=== PATIENT | female | born 1980 ===

== ENCOUNTER → 2016-07-29 | Outpatient (CLI) | payer BC ==
[2016-07-29 10:30] LABS: Basophils # (auto) 0.1 uL; Basophils % (auto) 1.2 % (0.0-2.0); Eosinophils # (auto) 0.1 uL; Eosinophils % (auto) 1.6 % (0.0-7.0); Hematocrit 42.7 % (36.0-46.0); Hemoglobin 14.2 g/dL (12.2-16.2); Lymphocytes # (auto) 2.1 uL; Lymphocytes % (auto) 29.3 % (10.0-50.0); Mean Corpuscular Hemoglobin 31.1 pg (28.0-32.0); Mean Corpuscular Hgb Conc. 33.2 g/dL (32.0-36.0); Mean Corpuscular Volume 93.5 fL (80.0-100.0); Mean Platelet Volume 8.2 fL (7.4-10.4); Monocytes # (auto) 0.4 uL; Monocytes % (auto) 5.3 % (0.0-12.0); Neutrophils # (auto) 4.5 uL; Neutrophils % (auto) 62.6 % (37.0-80.0); Platelet Count (auto) 471 10^3/uL (140-450); Red Cell Distribution Width 12.9 % (11.6-16.0); White Blood Cell 7.2 10^3/uL (4.4-10.8)
[2016-07-29 11:20] LABS: BUN/Creatinine Ratio 13.2; Bilirubin, Total 0.8 mg/dL (0.2-1.0); Calcium 9.4 mg/dL (8.5-10.1); Potassium 4.4 mmol/L (3.5-5.1); Total Protein 8.6 g/dL (6.4-8.2)
== END | disposition home or self-care (01) ==
LOC: LAB 09:23
PROVIDERS: ATTEND Internal Medicine
DX: Z00.00 Encounter for general adult medical examination without abnormal findings (principal)
CPT/HCPCS: 36415; 80053; 80061; 84443; 85025

== ENCOUNTER → 2016-12-02 | Outpatient (CLI) | payer BC | END | disposition home or self-care (01) | LOC: LAB 09:39 | PROVIDERS: ATTEND Internal Medicine | DX: D68.69 Other thrombophilia (principal) | CPT/HCPCS: 36415 ==

== ENCOUNTER → 2018-08-26 | Outpatient (CLI) | payer BC | END | disposition home or self-care (01) | LOC: LAB 09:40 | PROVIDERS: ATTEND Internal Medicine | DX: Z34.91 Encounter for supervision of normal pregnancy, unspecified, first trimester (principal); Z3A.01 Less than 8 weeks gestation of pregnancy | CPT/HCPCS: 36415; 84702 ==

== ENCOUNTER → 2021-09-27 | Outpatient (CLI) | payer BC ==
[2021-09-27 07:23] LABS: Urine WBC None Seen /hpf (0 - 5)
[2021-09-27 07:35] LABS: Basophils # (auto) 0.1 10 ^3/uL (0-0.2); Basophils % (auto) 1.4 % (0.0-2.0); Eosinophils # (auto) 0.2 10 ^3/uL (0-0.8); Eosinophils % (auto) 2.1 % (0.0-7.0); Hemoglobin 13.5 g/dL (12.2-16.2); Lymphocytes # (auto) 1.8 10 ^3/uL (0.4-5.4); Lymphocytes % (auto) 23.5 % (10.0-50.0); Mean Corpuscular Hemoglobin 31.7 pg (28.0-32.0); Mean Corpuscular Hgb Conc. 34.6 g/dL (32.0-36.0); Mean Corpuscular Volume 91.8 fL (80.0-100.0); Monocytes # (auto) 0.4 10 ^3/uL (0-1.3); Monocytes % (auto) 5.1 % (0.0-12.0); Neutrophils # (auto) 5.1 10 ^3/uL (1.6-8.6); Neutrophils % (auto) 67.9 % (37.0-80.0); Nucleated Red Blood Cells % 0.1 %; Red Blood Cells 4.25 10^6/uL (4.0-5.20); Red Cell Distribution Width 13.5 % (11.8-14.3); White Blood Cell 7.5 10^3/uL (4.4-10.8)
[2021-09-27 08:06] LABS: Potassium 4.3 mmol/L (3.5-5.1)
[2021-09-27 08:15] LABS: Albumin 3.6 g/dL (3.4-5.0); BUN/Creatinine Ratio 15.3; Bilirubin, Total 0.4 mg/dL (0.2-1.0); Calcium 9.2 mg/dL (8.5-10.1); Total Protein 7.7 g/dL (6.4-8.2)
[2021-09-27 08:42] LABS: Urine Bacteria NONE SEEN /hpf (None Seen); Urine Blood Negative /uL (Negative); Urine Specific Gravity 1.003 (1.001-1.035)
== END | disposition home or self-care (01) ==
LOC: LAB 07:03
PROVIDERS: ATTEND Internal Medicine
DX: Z00.00 Encounter for general adult medical examination without abnormal findings (principal); Z87.442 Personal history of urinary calculi
CPT/HCPCS: 36415; 80053; 80061; 81001; 82150; 84439; 84443; 85025

== ENCOUNTER → 2021-10-08 | Outpatient (CLI) | payer BC | END | disposition home or self-care (01) | LOC: LAB 15:07 | PROVIDERS: ATTEND Urology | DX: N20.0 Calculus of kidney (principal) | CPT/HCPCS: 87086 ==

== ENCOUNTER → 2023-07-21 | Outpatient (CLI) | payer BC ==
[~2023-07-21] MED LIST: LEVO500T31 PO; NORETAB32 PO; TAMS-35 PO
[2023-07-21 07:28] LABS: Basophils # (auto) 0.1 10 ^3/uL (0-0.2); Basophils % (auto) 1.1 % (0.0-2.0); Eosinophils # (auto) 0.1 10 ^3/uL (0-0.8); Eosinophils % (auto) 1.5 % (0.0-7.0); Hematocrit 43.3 % (36.0-46.0); Hemoglobin 14.3 g/dL (12.2-16.2); Lymphocytes # (auto) 1.6 10 ^3/uL (0.4-5.4); Lymphocytes % (auto) 20.7 % (10.0-50.0); Mean Corpuscular Volume 93.9 fL (80.0-100.0); Monocytes # (auto) 0.4 10 ^3/uL (0-1.3); Monocytes % (auto) 5.4 % (0.0-12.0); Neutrophils # (auto) 5.5 10 ^3/uL (1.6-8.6); Neutrophils % (auto) 71.3 % (37.0-80.0); Red Blood Cells 4.61 10^6/uL (4.0-5.20); Red Cell Distribution Width 13.3 % (11.8-14.3); White Blood Cell 7.8 10^3/uL (4.4-10.8)
[2023-07-21 08:06] LABS: Alanine Aminotransferase 13 U/L (7-40); Albumin 4.7 g/dL (3.2-4.8); Alkaline Phosphatase 120 U/L (46-116); Anion Gap 8 (5-15); Aspartate Aminotransferase 16 U/L (13-40); Blood Urea Nitrogen 15 mg/dL (9-23); Calcium 9.9 mg/dL (8.5-10.1); Carbon Dioxide 26 mmol/L (20-30); Chloride 105 mmol/L (98-107); Cholesterol 104 mg/dL (< 200); Glucose 94 mg/dL (74-106); HDL Cholesterol 51 mg/dL (40-59); LDL Cholesterol 39 mg/dL (< 100); Potassium 4.7 mmol/L (3.5-5.1); Sodium 139 mmol/L (136-145); Triglycerides 57 mg/dL (< 150)
[2023-07-21 08:07] LABS: Bilirubin, Total 0.8 mg/dL (0.2-1.0); Total Protein 7.1 g/dL (5.7-8.2)
[2023-07-21 10:28] LABS: T3 Total 1.14 ng/mL (0.60-1.81)
[2023-07-21 10:33] LABS: Free T4 (Free Thyroxine) 1.14 ng/dL (0.89-1.76)
== END | disposition home or self-care (01) ==
LOC: LAB 07:05
PROVIDERS: ATTEND Nurse Practitioner Gerontology
DX: Z00.01 Encounter for general adult medical examination with abnormal findings (principal); Z13.1 Encounter for screening for diabetes mellitus
CPT/HCPCS: 36415; 80053; 80061; 83036; 84439; 84443; 84480; 85025

== ENCOUNTER → 2024-09-14 | Outpatient (CLI) | payer BC ==
[2024-09-14 07:28] LABS: Urine Bacteria FEW /hpf (None Seen); Urine Blood TRACE /uL (Negative); Urine Clarity Clear (Clear); Urine Color Light-Yellow (Yellow); Urine Mucus FEW (None Seen); Urine Protein, UAD Negative (Negative); Urine Specific Gravity 1.022 (1.001-1.035); Urine Squamous Epithelial Cell FEW /hpf (<5); Urine Urobilinogen Normal (Negative); Urine WBC 2 /HPF (0-5)
[2024-09-14 07:41] LABS: Alanine Aminotransferase 14 U/L (7-40); Albumin 4.8 g/dL (3.2-4.8); Alkaline Phosphatase 83 U/L (46-116); Anion Gap 10 (5-15); Aspartate Aminotransferase 16 U/L (13-40); BUN/Creatinine Ratio 15.7 (10.0-20.0); Blood Urea Nitrogen 16 mg/dL (9-23); Calcium 10.2 mg/dL (8.7-10.4); Carbon Dioxide 25 mmol/L (20-31); Chloride 106 mmol/L (98-107); Cholesterol 125 mg/dL (< 200); Glucose 101 mg/dL (74-106); HDL Cholesterol 59 mg/dL (40-59); LDL Cholesterol 39 mg/dL (< 100); Potassium 4.3 mmol/L (3.5-5.1); Sodium 141 mmol/L (136-145); Total Protein 7.5 g/dL (5.7-8.2); Triglycerides 92 mg/dL (< 150)
[2024-09-14 07:42] LABS: Bilirubin, Total 0.8 mg/dL (0.2-1.0)
[2024-09-14 08:18] LABS: Basophils # (auto) 0.1 10 ^3/uL (0-0.2); Basophils % (auto) 0.9 % (0.0-2.0); Eosinophils # (auto) 0.2 10 ^3/uL (0-0.8); Eosinophils % (auto) 3.6 % (0.0-7.0); Hematocrit 41.4 % (36.0-46.0); Lymphocytes # (auto) 1.5 10 ^3/uL (0.4-5.4); Lymphocytes % (auto) 24.8 % (10.0-50.0); Mean Corpuscular Hemoglobin 32.1 pg (28.0-32.0); Mean Corpuscular Hgb Conc. 33.9 g/dL (32.0-36.0); Mean Corpuscular Volume 94.7 fL (80.0-100.0); Monocytes # (auto) 0.4 10 ^3/uL (0-1.3); Monocytes % (auto) 6.3 % (0.0-12.0); Neutrophils # (auto) 3.9 10 ^3/uL (1.6-8.6); Neutrophils % (auto) 64.4 % (37.0-80.0); Nucleated Red Blood Cells % 0.2 %; Platelet Count (auto) 319 10^3/uL (140-450); Red Blood Cells 4.37 10^6/uL (4.0-5.20); Red Cell Distribution Width 13.1 % (11.8-14.3); White Blood Cell 6.1 10^3/uL (4.4-10.8)
== END | disposition home or self-care (01) ==
LOC: LAB 06:41
PROVIDERS: ATTEND Internal Medicine
DX: N13.2 Hydronephrosis with renal and ureteral calculous obstruction (principal); Z13.1 Encounter for screening for diabetes mellitus; Z00.01 Encounter for general adult medical examination with abnormal findings
CPT/HCPCS: 36415; 80053; 80061; 81001; 83036; 84439; 84443; 85025